=== PATIENT | female | born 1980 | race Two or more races ===

== ENCOUNTER 2018-12-23 23:59 | Emergency (ER) | payer MEDICAID ==
[~2018-12-23] VITALS: Ht 154.9 cm; Wt 68.0 kg
[2018-12-24 04:19] VITALS: BP 106/58
[2018-12-24] MEDS ORDERED: diphenhdrAMINE HCL 50 MG/1 ML VL IM ONE (04:30)
[2018-12-24] MEDS ORDERED: methylPREDNISolone SOD SUCC 125 MG/2 ML VL IM ONE (04:30)
[2018-12-24] MEDS ORDERED: EPINEPHrine HCL 1 MG/1 ML AMP SC ONE (04:30)
== END 2018-12-24 06:11 | disposition home or self-care (01) ==
LOC: ER 12-24 00:05
DX: T78.40XA Allergy, unspecified, initial encounter (principal); X58.XXXA Exposure to other specified factors, initial encounter
CPT/HCPCS: 96372; 99283; J0171; J1200; J2930